=== PATIENT | female | born 1990 | race Caucasian/White ===

== ENCOUNTER → 2017-01-09 | Outpatient (CLI) | payer OTHER ==
[~2017-01-09] MED LIST: CIPR500T4 PO; ONDA1TAB16 PO; PERC5TAB12 PO; PROM25TA5 PO; Z.0.BCPILL PO
[2017-01-09 10:23] LABS: AUTOMATED NEUTROPHIL # 4.7 TH/MM3 (1.8-7.7); BASOPHIL % 0.3 % (0.0-2.0); EOSINOPHIL # 0.1 TH/MM3 (0-0.4); EOSINOPHIL % 1.3 % (0.0-4.0); HEMATOCRIT 37.4 % (35.0-46.0); HEMO FLAGS DIFF FINAL; LYMPH % 18.4 % (9.0-44.0); LYMPHOCYTE # 1.2 TH/MM3 (1.0-4.8); MEAN CELL VOLUME 86.7 FL (80.0-100.0); MEAN CORPUSCULAR HEMOGLOBIN 29.6 PG (27.0-34.0); MEAN CORPUSCULAR HGB CONC 34.1 % (32.0-36.0); MONO % 6.4 % (0.0-8.0); NEUT % 73.6 % (16.0-70.0); PLATELET COUNT 283 TH/MM3 (150-450); RED BLOOD COUNT 4.31 MIL/MM3 (4.00-5.30); RED CELL DISTRIBUTION WIDTH 12.7 % (11.6-17.2); WHITE BLOOD COUNT 6.4 TH/MM3 (4.0-11.0)
[2017-01-09 10:59] LABS: RUBELLA IGG ANTIBODY 115.5 IU/mL (10.0-500.0); RUBELLA STATUS IMMUNE (IMMUNE)
[2017-01-09 14:12] LABS: RAPID PLASMA REAGIN SCREEN NON-REACTIVE (NON-REACTVE)
== END ==
LOC: CLAB 09:46
PROVIDERS: ATTEND Obstetrics & Gynecology
DX: Z34.01 Encounter for supervision of normal first pregnancy, first trimester (principal)
CPT/HCPCS: 36415; 83020; 85025; 86592; 86703; 86762; 86850; 86900; 86901; 87086; 87340

== ENCOUNTER 2017-03-31 14:54 | Emergency (ER) | payer OTHER ==
[~2017-03-31] VITALS: Ht 152.4 cm; Wt 86.2 kg
[2017-03-31] VITALS (12 sets, daily range): BP systolic 116–138; BP diastolic 67–85; PULSE 80–108; TEMP 97.9
--- NOTE | 2017-03-31 15:18 | PD ---
HPI Chief Complaint Elevated BP. Date Seen: Mar 31, 2017 (Jamliah Rich MD R2) Travel History International Travel<30 Days: No Contact w/Intl Traveler<30Days: No (Jamilah Rich MD R2) History of Present Illness HPI Patient is a 26 year old at 23-1/7 weeks gestation who presents today from Dr. Castro's office for elevated BP. Blood pressures in the office were 152/86 and 148/90. She has not had an issue with blood pressure during this but states that she occasionally had elevated blood pressures prior to this . She denies any visual changes, edema, headache, or abdominal pain. She denies any vaginal bleeding or discharge. No gush or leaking of fluid. Positive movement. (Jamilah Rich MD R2) History Past Medical History Medical History: Denies Significant Hx (Jamilah Rich MD R2) Obstetric History Obstetric History (Jamilah Rich MD R2) Past Surgical History Surgical History: No Previous Surgery (Jamilah Rich MD R2) Family History Family History: Negative (Jamilah Rich MD R2) Social History Alcohol Use: No Tobacco Use: No Substance Abuse: No (Jamilah Rich MD R2) Allergies-Medications (Allergen,Severity, Reaction): Coded Allergies: Biaxin (Verified Allergy, Mild, rash, 12/19/15) Penicillin (Verified Allergy, Mild, rash, 12/19/15) Home Meds Discontinued Reported Medications Miscellaneous ( Control Pills) Tab1 Tab PO DAILY 12/17/15 Discontinued Scripts Promethazine 25 mg (Phenergan 25 mg)25 Mg Tab25 Mg PO Q6H PRN (NAUSEA) #20 TAB Prov:Dyan Holman MD 12/19/15 Ondansetron Hcl (Zofran Tab)4 Mg Tab4 Mg PO Q6 PRN (NAUSEA OR VOMITING) #12 TAB Prov:Jesse Quiroga MD 12/17/15 Ciprofloxacin Hcl (Cipro)500 Mg [id number] Mg PO BID #10 TAB Prov:Jesse Quiroga MD 12/17/15 Oxycodone-Acetaminophen 5-325 mg (Percocet 5-325 mg)Oxycodone 5/325 Acetaminophen Tab1 Tab PO Q6H PRN (PAIN) #25 TAB Prov:Jesse Quiroga MD 12/17/15 Review of Systems Except as stated in HPI: all other systems reviewed are Neg General / Constitutional: No: Fever, Chills Eyes: No: Blurred Vision, Visual changes HENT: No: Headaches Cardiovascular: No: Edema Respiratory: No: Short of Breath Gastrointestinal: No: Abdominal Pain Genitourinary: No: Dysuria, Pelvic Pain, Discharge, Vaginal Bleeding Musculoskeletal: No: Edema Psychiatric: No: Substance Abuse (Jamilah Rich MD R2) Physical Exam Narrative GENERAL: Well-nourished, well-developed patient. SKIN: Warm and dry. HEAD: Normocephalic and atraumatic. EYES: No scleral icterus. No injection or drainage. ENT: No nasal drainage noted. Mucous membranes pink. Airway patent. NECK: Supple, trachea midline. No JVD. CARDIOVASCULAR: Regular rate and rhythm without murmurs, gallops, or rubs. RESPIRATORY: Breath sounds equal bilaterally. No accessory muscle use. ABDOMEN/GI: Abdomen soft, non-tender, bowel sounds present, no rebound, no guarding Gravid to 23 weeks size GENITOURINARY: Membranes: intact Uterine Contractions: none FHT's: Category: I Baseline: 150 Reactive: + Variability: moderate Decels: none EXTREMITIES: No cyanosis or edema. BACK: Nontender without obvious deformity. No CVA tenderness. NEUROLOGICAL: Awake and alert. Motor and sensory grossly within normal limits. Normal speech. (Jamilah Rich MD R2) Data Data Vital Signs Reviewed: Yes Orders Cbc No Diff, Includes Plts (03/31/17 15:15) Comprehensive Metabolic Panel (03/31/17 15:15) Uric Acid (03/31/17 15:15) Urinalysis - C+S If Indicated (03/31/17 15:15) Vital Signs (Adult) .ON ADMISSION (03/31/17 15:16) ^ Labor Status (03/31/17 15:16) ^ Hydration (03/31/17 15:16) (Jamilah Rich MD R2) MDM Medical Record Reviewed: Yes Narrative Course / MDM 26 year old at 23-1/7 weeks gestation. 1. IUP- Category I tracing, reassuring. 2. Elevated BP- BP 126/69 here. Will obtain Preeclampsia workup including CBC, CMP, uric acid, and UA. Continue to monitor BP. dw Dr. Hernandez Addendum: BP's stable ranging 116-126/67-79. CBC, CMP, uric acid wnl UA significant for 30 protein Will obtain 24 hour urine protein as an outpatient. Discharge to home, follow-up with Dr. Castro. (Jamilah Rich MD R2) Attending Attestation The exam, history, and the medical decision-making described in the above note were completed with the assistance of the resident provider. I reviewed and agree with the findings presented. I attest that I had a [id number] encounter with the patient on the same day, and personally performed and documented my assessment and findings in the medical record. (Zeus Hernandez MD) Diagnosis Diagnosis: Primary Impression: Elevated blood pressure affecting in second trimester, antepartum Additional Impression: 23 weeks gestation of Disposition: DISCHARGE HOME Condition: Stable Patient Instructions: 24 Hour Urine Collection (GEN), General Instructions Jamilah Rich MD R2 Mar 31, 2017 15:18 Zeus Hernandez MD Mar 31, 2017 17:03
[2017-03-31 16:31] LABS: BLOOD, URINE NEG (NEG); COMMENT (UR) CULTURE INDICATED; CULTURE IF INDICATED CULTURE INDICATED; GLUCOSE,URINE NEG (NEG); KETONE, URINE NEG (NEG); MUCUS URINE FEW /lpf (OCC); NITRITE,URINE NEG (NEG); PH, URINE 6.5 (5.0-8.5); SQUAMOUS EPITHELIAL CELL URINE 14 /hpf (0-5); URINE COLOR YELLOW (YELLW/STRAW)
[2017-03-31 16:34] LABS: MEAN CELL VOLUME 87.3 FL (80.0-100.0); MEAN CORPUSCULAR HEMOGLOBIN 29.4 PG (27.0-34.0); MEAN CORPUSCULAR HGB CONC 33.7 % (32.0-36.0); PLATELET COUNT 236 TH/MM3 (150-450); RED BLOOD COUNT 3.78 MIL/MM3 (4.00-5.30); RED CELL DISTRIBUTION WIDTH 12.9 % (11.6-17.2); REVIEW FLAG FINAL; WHITE BLOOD COUNT 8.8 TH/MM3 (4.0-11.0)
[2017-03-31 16:42] LABS: ALT (GPT) 14 U/L (10-53); ANION GAP 9 MEQ/L (5-15); AST (GOT) 7 U/L (15-37); BICARBONATE 23.8 MEQ/L (21.0-32.0); BLOOD UREA NITROGEN 6 MG/DL (7-18); CHLORIDE 106 MEQ/L (98-107); GLOMERULAR FILTRATION RATE 142 ML/MIN (>89); POTASSIUM 3.9 MEQ/L (3.5-5.1); SODIUM (NA) 139 MEQ/L (136-145)
[2017-03-31 16:45] LABS: ALKALINE PHOSPHATASE 94 U/L (45-117); TOTAL BILIRUBIN ADULT 0.2 MG/DL (0.2-1.0)
== END 2017-03-31 17:19 | disposition home or self-care (01) ==
LOC: HOBED 14:54
DX: R03.0 Elevated blood-pressure reading, without diagnosis of hypertension (principal); O26.92 Pregnancy related conditions, unspecified, second trimester; B96.89 Other specified bacterial agents as the cause of diseases classified elsewhere; Z88.0 Allergy status to penicillin; Z3A.23 23 weeks gestation of pregnancy
CPT/HCPCS: 80053; 81001; 84550; 85027; 87086; 99283

== ENCOUNTER → 2017-04-02 | Outpatient (CLI) | payer OTHER ==
[2017-04-02 16:35] LABS: URINE TOTAL PROTEIN TIMED 7.8 MG/DL
== END ==
LOC: PLAB 12:15
PROVIDERS: ATTEND Family Medicine
DX: O13.2 Gestational [pregnancy-induced] hypertension without significant proteinuria, second trimester (principal)
CPT/HCPCS: 84157

== ENCOUNTER → 2017-05-04 | Outpatient (CLI) | payer OTHER ==
[2017-05-04 12:41] LABS: HEMATOCRIT 33.1 % (35.0-46.0); REVIEW FLAG FINAL
== END ==
LOC: CLAB 10:52
PROVIDERS: ATTEND Obstetrics & Gynecology
DX: Z34.83 Encounter for supervision of other normal pregnancy, third trimester (principal)
CPT/HCPCS: 36415; 82951; 85014; 85018

== ENCOUNTER 2017-06-09 15:24 | Emergency (ER) | payer OTHER ==
[~2017-06-09] VITALS: Ht 152.4 cm; Wt 90.0 kg
--- NOTE | 2017-06-09 16:33 | PD ---
HPI Chief Complaint Elevated BP in the office Travel History International Travel<30 Days: No Contact w/Intl Traveler<30Days: No Known Affected Area: No History of Present Illness HPI 26y/o , IUP at 33.1 PNC complicated by 1. Obesity 2. Elevated BP in office on prior occasions Patient presents from the office for evaluation of elevated BP in the office. She reports her BP in the office was 186/102. She denies any LINDSEY, visual changes , RUQ or epigastric pain. She reports normal FM. She denies any ctx, LOF, or VB. She has no other concerns today. Weeks Gestation: 33 Para: 0 : 1 History Past Medical History Narrative Medical Obesity Obstetric History Obstetric History Past Surgical History Surgical History: No Previous Surgery Family History Narrative Family History HTN Elevated cholesterol DM CA Social History Alcohol Use: No Tobacco Use: No Substance Abuse: No Allergies-Medications (Allergen,Severity, Reaction): Coded Allergies: clarithromycin (Verified Allergy, Mild, rash, 06/09/17) penicillin G (Verified Allergy, Mild, rash, 06/09/17) Review of Systems Except as stated in HPI: all other systems reviewed are Neg Physical Exam Narrative GENERAL: Well-nourished, well-developed patient. SKIN: Warm and dry. HEAD: Normocephalic and atraumatic. EYES: No scleral icterus. No injection or drainage. ENT: No nasal drainage noted. Mucous membranes pink. Airway patent. NECK: Supple, trachea midline. No JVD. CARDIOVASCULAR: Regular rate and rhythm without murmurs, gallops, or rubs. RESPIRATORY: Breath sounds equal bilaterally. No accessory muscle use. BREASTS: deferred ABDOMEN/GI: Abdomen soft, non-tender, bowel sounds present, no rebound, no guarding Gravid GENITOURINARY: deferred FHT's: Reactive NST, 120s EXTREMITIES: No cyanosis. 1+ edema. BACK: Nontender without obvious deformity. No CVA tenderness. NEUROLOGICAL: Awake and alert. Motor and sensory grossly within normal limits. Five out of 5 muscle strength in all muscle groups. Normal speech. No clonus MS: grossly normal ROM, gait, muscle strength Data Data Orders Orders Vital Signs (Adult) .ON ADMISSION (06/09/17 16:09) ^ Labor Status (06/09/17 16:09) Urinalysis - C+S If Indicated (06/09/17 16:09) Diet Liquid (06/09/17 Dinner) Cbc No Diff, Includes Plts (06/09/17 16:09) Comprehensive Metabolic Panel (06/09/17 16:09) Uric Acid (06/09/17 16:09) Protein Creat Ratio, Random Ur (06/09/17 16:09) MDM Plan A/P: 26y/o 1. IUP at 33.1 2. Elevated BP: no evidence of preeclampsia, normal BP on evaluation at [facility] and no signs/symptoms of preeclampsia. Normal labs, normal PC ratio, will f/u with 24h urine for TP and creatinine clearance, modified bedrest at home. 3. wellbeing: reassuring testing with reactive NST, FHR reassuring and appropriate for gestational age, FKC daily. 4. obesity 5. Hypokalemia: will Rx KCl 40mew now and repeat dose po in am, rx given. 6. F/U with primary OB in 2-3d or sooner if needed Case discussed with Dr. Castro who agreed with evaluation and plan of care. Diagnosis Diagnosis: Primary Impression: 33 weeks gestation of Additional Impression: Gestational [-induced] hypertension without significant proteinuria, third trimester Disposition: 01 DISCHARGE HOME Patient Instructions: Movement (ED), Preeclampsia (ED) Additional Instructions: F/U with primary Ob in 3d or sooner if needed, strict preeclampsia precautions, FKC daily. 24h urine collection. modified bedrest. Cassie Ambrocio MD Jun 09, 2017 16:33
[2017-06-09 16:39] LABS: HEMATOCRIT 35.6 % (35.0-46.0); MEAN CELL VOLUME 88.1 FL (80.0-100.0); MEAN CORPUSCULAR HEMOGLOBIN 28.9 PG (27.0-34.0); MEAN CORPUSCULAR HGB CONC 32.8 % (32.0-36.0); PLATELET COUNT 257 TH/MM3 (150-450); RED BLOOD COUNT 4.03 MIL/MM3 (4.00-5.30); REVIEW FLAG FINAL; WHITE BLOOD COUNT 11.6 TH/MM3 (4.0-11.0)
[2017-06-09 16:47] LABS: BACTERIA, URINE RARE /hpf; BLOOD, URINE NEG (NEG); COMMENT (UR) CULT NOT INDICATED; CULTURE IF INDICATED CULT NOT INDICATED; GLUCOSE,URINE NEG (NEG); KETONE, URINE TRACE mg/dL (NEG); MUCUS URINE FEW /lpf (OCC); NITRITE,URINE NEG (NEG); SQUAMOUS EPITHELIAL CELL URINE 17 /hpf (0-5); URINE COLOR YELLOW (YELLW/STRAW)
[2017-06-09 17:03] LABS: ANION GAP 5 MEQ/L (5-15); AST (GOT) 5 U/L (15-37); BICARBONATE 26.6 MEQ/L (21.0-32.0); BLOOD UREA NITROGEN 4 MG/DL (7-18); CHLORIDE 106 MEQ/L (98-107); GLOMERULAR FILTRATION RATE 142 ML/MIN (>89); POTASSIUM 3.3 MEQ/L (3.5-5.1); SODIUM (NA) 138 MEQ/L (136-145)
[2017-06-09 17:08] LABS: ALKALINE PHOSPHATASE 169 U/L (45-117); ALT (GPT) 16 U/L (10-53); TOTAL BILIRUBIN ADULT 0.2 MG/DL (0.2-1.0); URIC ACID 4.1 MG/DL (2.6-6.0)
--- NOTE | 2017-06-09 18:04 | PD ---
History of Present Illness History of Present Illness NST procedure note Indications: IUP at 33w, elevated BP, obesity Baseline: 130s, moderate LTV, good accels, no decels No ctx Final Dx: IUP at 33w, reassuring testing, no evidence of preeclampsia F/U as clinically indicated Cassie Ambrocio MD Jun 09, 2017 18:04
[2017-06-09] MEDS ORDERED: POTASSIUM CHLORIDE 20 MEQ CONTROLLED RELEASE TAB PO ONE (18:15)
== END 2017-06-09 19:03 | disposition home or self-care (01) ==
LOC: HOBED 15:24
DX: O13.3 Gestational [pregnancy-induced] hypertension without significant proteinuria, third trimester (principal); O99.213 Obesity complicating pregnancy, third trimester; E87.6 Hypokalemia; Z3A.33 33 weeks gestation of pregnancy; Z88.0 Allergy status to penicillin; Z88.8 Allergy status to other drugs, medicaments and biological substances
CPT/HCPCS: 36415; 59025; 80053; 81001; 82570; 84156; 84550; 85027

== ENCOUNTER → 2017-06-11 | Outpatient (CLI) | payer OTHER ==
[~2017-06-11] MED LIST changes: -CIPR500T4 PO; +IBUP-232 PO; -ONDA1TAB16 PO; +OXYC1TAB63 PO; -PERC5TAB12 PO; -PROM25TA5 PO; -Z.0.BCPILL PO
[2017-06-11 13:24] LABS: POTASSIUM 3.8 MEQ/L (3.5-5.1)
[2017-06-11 13:45] LABS: URINE TOTAL PROTEIN TIMED 10.4 MG/DL
[2017-06-11 13:55] LABS: CREAT 24 TIMED 45.9 MG/DL
== END ==
LOC: PLAB 10:56
DX: O13.9 Gestational [pregnancy-induced] hypertension without significant proteinuria, unspecified trimester (principal); O14.90 Unspecified pre-eclampsia, unspecified trimester
CPT/HCPCS: 80048; 82575; 84157

== ENCOUNTER 2017-07-23 09:23 | Inpatient (IN) | payer OTHER ==
[2017-07-24] MEDS ORDERED: PHENYLEPH/NS 1000 MCG/10 ML SYR IV ONE (12:00)
[2017-07-24] MEDS ORDERED: DEXAMETHASONE SOD PHOS 4 MG/ML VIAL IV ONE (12:00)
[2017-07-24] MEDS ORDERED: ePHEDrine/NS 25 MG/5 ML SYR IV ONE (12:00)
[2017-07-24] MEDS ORDERED: OXYTOCIN 10 UNIT/ML AMP IV ONE (12:00)
[2017-07-24] MEDS ORDERED: MORPHINE SULFATE PF 5 MG/10 ML VIAL ONE (12:00)
[2017-07-24] MEDS ORDERED: ONDANSETRON HCL 4 MG/2 ML VIAL IV PUSH ONE (12:00)
[2017-07-24] MEDS ORDERED: LACTATED RINGER'S 1000 ML INJ 2,000 ML IV ONE (12:00)
[2017-07-24] MEDS ORDERED: LIDOCAINE HCL 1% PF 5 ML AMPULE ONE (13:46)
[2017-07-24 14:12] LABS: AUTOMATED NEUTROPHIL # 8.3 TH/MM3 (1.8-7.7); BASOPHIL % 0.3 % (0.0-2.0); EOSINOPHIL # 0.1 TH/MM3 (0-0.4); EOSINOPHIL % 0.5 % (0.0-4.0); HEMATOCRIT 35.3 % (35.0-46.0); HEMO FLAGS DIFF FINAL; LYMPH % 15.9 % (9.0-44.0); LYMPHOCYTE # 1.7 TH/MM3 (1.0-4.8); MEAN CELL VOLUME 86.3 FL (80.0-100.0); MEAN CORPUSCULAR HEMOGLOBIN 28.6 PG (27.0-34.0); MEAN CORPUSCULAR HGB CONC 33.2 % (32.0-36.0); MONO % 5.1 % (0.0-8.0); NEUT % 78.2 % (16.0-70.0); PLATELET COUNT 216 TH/MM3 (150-450); RED BLOOD COUNT 4.09 MIL/MM3 (4.00-5.30); RED CELL DISTRIBUTION WIDTH 13.7 % (11.6-17.2); WHITE BLOOD COUNT 10.7 TH/MM3 (4.0-11.0)
[2017-07-24 14:29] LABS: BACTERIA, URINE FEW /hpf; BLOOD, URINE NEG (NEG); COMMENT (UR) CULTURE INDICATED; CULTURE IF INDICATED CULTURE INDICATED; GLUCOSE,URINE NEG (NEG); KETONE, URINE 40 mg/dL (NEG); MUCUS URINE FEW /lpf (OCC); NITRITE,URINE NEG (NEG); SQUAMOUS EPITHELIAL CELL URINE 10 /hpf (0-5); URINE COLOR YELLOW (YELLW/STRAW)
[2017-07-24] MEDS ORDERED: CITRIC ACID-SODIUM CITRATE LIQ 30 ML UDC PO SCH (15:45)
[2017-07-24] MEDS ORDERED: ceFAZolin 2 GM PREMIX 50 ML IV SCH (15:45)
[2017-07-24] MEDS ORDERED: LACTATED RINGER'S 1000 ML IV ONE (15:45)
[2017-07-24] MEDS ORDERED: LACTATED RINGER'S 1000 ML IV SCH (16:15)
[2017-07-24 20:04] VITALS: BP 140/94; PULSE 88
[2017-07-24 20:15] VITALS: RESP 18; TEMP 98.7
[2017-07-24 21:56] VITALS: BP 139/90; PULSE 80
[2017-07-24] MEDS ORDERED: oxyCODONE/ACETAMINOPHEN 5 MG/325 MG TAB PO PRN (23:45)
[2017-07-24] MEDS ORDERED: ZOLPIDEM TARTRATE 5 MG TAB PO PRN (23:45)
[2017-07-24] MEDS ORDERED: ACETAMINOPHEN 325 MG TAB PO PRN (23:45)
[2017-07-24] MEDS ORDERED: SIMETHICONE 80 MG CHEWABLE TAB PO PRN (23:45)
[2017-07-24] MEDS ORDERED: OXYTOCIN 30 UNITS-500ML PREMIX 500 ML IV ONE ×2 (23:45)
[2017-07-24] MEDS ORDERED: SODIUM CHLORIDE 0.9% FLUSH 10 ML FLUSH IV FLUSH PRN (23:45)
[2017-07-24] MEDS ORDERED: ONDANSETRON HCL 4 MG/2 ML VIAL IV PUSH PRN (23:45)
[2017-07-24 23:56] VITALS: BP 126/72; PULSE 85; RESP 20; TEMP 98.1; O2SAT 98
[2017-07-25 00:02] VITALS: BP 127/68; PULSE 70; RESP 18; O2SAT 97
[2017-07-25 00:16] VITALS: BP 135/74; PULSE 97; RESP 20; O2SAT 99
[2017-07-25 00:36] VITALS: BP 133/79; PULSE 72; RESP 18; O2SAT 98
[2017-07-25 01:15] VITALS: BP 127/74; PULSE 73; RESP 20; TEMP 98.1; O2SAT 99
[2017-07-25 04:00] VITALS: BP 133/66; PULSE 86; RESP 18; TEMP 98
[2017-07-25] MEDS ORDERED: LACTATED RINGER'S 1000 ML INJ 1,000 ML IV SCH (04:41)
[2017-07-25 08:48] LABS: AUTOMATED NEUTROPHIL # 10.7 TH/MM3 (1.8-7.7); BASOPHIL % 0.1 % (0.0-2.0); HEMO FLAGS DIFF FINAL; LYMPH % 10.5 % (9.0-44.0); LYMPHOCYTE # 1.3 TH/MM3 (1.0-4.8); MEAN CELL VOLUME 86.1 FL (80.0-100.0); MEAN CORPUSCULAR HEMOGLOBIN 28.6 PG (27.0-34.0); MEAN CORPUSCULAR HGB CONC 33.2 % (32.0-36.0); MONO % 5.1 % (0.0-8.0); NEUT % 84.3 % (16.0-70.0); PLATELET COUNT 192 TH/MM3 (150-450); RED BLOOD COUNT 3.48 MIL/MM3 (4.00-5.30); RED CELL DISTRIBUTION WIDTH 13.7 % (11.6-17.2); WHITE BLOOD COUNT 12.7 TH/MM3 (4.0-11.0)
[2017-07-25] MEDS ORDERED: SODIUM CHLORIDE 0.9% FLUSH 10 ML FLUSH IV FLUSH SCH (09:00)
[2017-07-25] MEDS ORDERED: OXYTOCIN 30 UNITS-500ML PREMIX 500 ML IV PRN (09:45)
[2017-07-25] MEDS: IBUPROFEN 600 MG TAB PO PRN ×2 (10:40→18:39)
[2017-07-25] MEDS: oxyCODONE/ACETAMINOPHEN 5 MG/325 MG TAB PO PRN ×2 (12:06→18:39)
--- NOTE | 2017-07-25 14:54 | MP ---
cc: Pawel CASTRO MD Corrected Copy: 07/28/17 DATE OF SURGERY: 07/25/2017. PREOPERATIVE DIAGNOSIS: 1. Intrauterine at 39+ weeks. 2. Breech presentation. POSTOPERATIVE DIAGNOSIS: 1. Intrauterine at 39+ weeks. 2. Breech presentation. 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 OPERATIVE PROCEDURE PERFORMED: Primary low transverse section. SURGEON: Pawel Castro MD. ANESTHESIA: Spinal. FINDINGS: The uterus was a unicornuate with an absent left tube, it was small. The right ovary and tube were normal. On the left side, there was an infundibulopelvic ligament with a possible small ovary, but it was retroperitoneal. The baby was a girl, 6 pounds, 5 ounces in good health. COMPLICATIONS: None. COUNTS: Correct. ESTIMATED BLOOD LOSS: 500 cc. FLUIDS: Crystalloids. DISPOSITION: The patient tolerated the procedure well and went to the recovery room in good condition. DESCRIPTION OF THE PROCEDURE IN DETAIL: Under an adequate level of anesthesia, she was prepped and draped for abdominal surgery. A Pfannenstiel incision was made and carried down to the fascia. The fascia was taken off the rectus muscle by blunt and sharp dissection. The rectus muscles were spread bluntly and the peritoneum was entered under direct vision without difficulty. The incision was extended with care to avoid the urinary bladder. A bladder blade was placed and a bladder flap created in the usual fashion. The uterine incision was made in a transverse manner along the lower uterine segment which was not well-developed. It was taken down in the midline until the intrauterine cavity was entered. A large amount of clear fluid was noted. The breech was grasped and delivered without difficulty. The legs were delivered and the thorax was delivered. The arms were reduced bilaterally without difficulty. With gentle fundal pressure the vertex was delivered without difficulty and the hypopharynx and nasopharynx were suctioned. The cord doubly clamped and cut and the handed to the resuscitation team present. The placenta was delivered manually. The uterus was curettaged twice with a wet lap and irrigated with a large amount of fluid. The uterine incision was then repaired with 2-0 Vicryl in a running locking fashion, with the second layer imbricating the first. Hemostasis was excellent. The cul-de-sac and gutters were cleaned of blood and debris. The uterus was delivered back into the abdomen. The rectus muscles were reapproximated with 0 Vicryl in interrupted fashion. The fascia was repaired from lateral to midline with 0 Vicryl and the subcu was repaired with 3-0 Vicryl. The skin was repaired with a 4-0 Vicryl in a subcuticular manner. The wound was sterilely dressed. She tolerated the procedure well and went to the recovery room in satisfactory condition. R. MD PREM Esparza/JCSuzette /11:43 PM /8:41 AM
[2017-07-25] MEDS ORDERED: DIPHTH/TETANUS/ACEL PERTUSSIS (BOOSTER) 0.5 ML VIAL/PFS IM ONE (16:00)
[2017-07-25] MEDS ORDERED: MEASLES, MUMPS, RUBELLA VACCINE 0.5 ML VIAL SQ ONE (16:00)
[2017-07-25] MEDS: DOCUSATE SODIUM 50 MG/SENNA 8.6 MG TAB PO PRN (18:40)
[2017-07-25 20:40] VITALS: BP 142/89; PULSE 95; RESP 16; TEMP 98
[2017-07-26] MEDS: oxyCODONE/ACETAMINOPHEN 5 MG/325 MG TAB PO PRN ×2 (02:08→09:11)
[2017-07-26] MEDS: IBUPROFEN 600 MG TAB PO PRN ×3 (02:08→15:53)
[2017-07-26] MEDS: DOCUSATE SODIUM 50 MG/SENNA 8.6 MG TAB PO PRN (09:11)
[2017-07-26] MEDS ORDERED: IBUP-232 PO (15:09)
[2017-07-26] MEDS ORDERED: OXYC1TAB63 PO (15:09)
--- NOTE | 2017-07-26 15:12 | HHI.DCPOC ---
Discharge Care Plan Diagnosis: (1) Breech extraction, delivered (2) delivery delivered Report Symptoms to Your Doctor -Temperature above 100.5 degrees -Redness, of incision or excessive or foul smelling drainage -Unusual pain or calf pain -Increased vaginal bleeding -Painful or difficulty urinating -Feelings of extreme sadness or anxiety after 2 weeks Goals to Promote Your Health * To prevent worsening of your condition and complications * To maintain your health at the optimal level Directions to Meet Your Goals Take your medications as prescribed Follow your dietary instruction Follow activity as directed Ensure plenty of rest for recovery Drink fluids for hydration Keep your appointments as scheduled Take your immunizations and boosters as scheduled If your symptoms worsen call your PCP, if no PCP go to Urgent Care Center or Emergency Room Smoking is Dangerous to Your Health. Avoid second hand smoke Call the 24-hour crisis hotline for domestic abuse at Pawel Castro MD Jul 26, 2017 15:12
--- NOTE | 2017-07-26 15:26 | HHI.OB ---
Subjective Post Operative Day: 2 Remarks Doing well Baby is doing well Bleeding is normal Pain is controlled ready to go home Objective Vitals/I&O Vital Signs Date Time Temp Pulse Resp B/P (MAP) Pulse Ox O2 Delivery O2 Flow Rate FiO2 07/25/17 20:40 95 142/89 (106) 07/25/17 20:40 98.0 16 Result Diagram: 07/25/17 0810 Objective Remarks GENERAL: Well-nourished, well-developed patient. CARDIOVASCULAR: Regular rate and rhythm without murmurs, gallops, or rubs. RESPIRATORY: Breath sounds equal bilaterally. No accessory muscle use. ABDOMEN/GI: Abdomen soft, non-tender, bowel sounds present. Incision: Clean, dry and intact. Fundus: Firm, non-tender at umbilicus. GENITOURINARY: Light to moderate bleeding. EXTREMITIES: No cyanosis or edema, non-tender, without signs of DVT. Medications and IVs Current Medications Medications (Trade) Dose Ordered Sig/Norma Route Start Time Stop Time Status Last Admin (NS Flush) 2 ml BID IV FLUSH 07/25/17 09:00 (NS Flush) 2 ml UNSCH PRN IV FLUSH 07/24/17 23:45 (Mylicon Chew) 80 mg QID PRN PO 07/24/17 23:45 (Tylenol) 650 mg Q6H PRN PO 07/24/17 23:45 (Motrin) 600 mg Q6H PRN PO 07/24/17 23:45 07/26/17 09:11 (Percocet 5-325 Mg) 1 tab Q4H PRN PO 07/24/17 23:45 (Percocet 5-325 Mg) 2 tab Q4H PRN PO 07/24/17 23:45 07/26/17 09:11 (Yanci-Colace) 2 tab Q12H PRN PO 07/24/17 23:45 07/26/17 09:11 (Ambien) 5 mg HS PRN PO 07/24/17 23:45 (Zofran Inj) 4 mg Q6H PRN IV PUSH 07/24/17 23:45 Assessment/Plan Assessment and Plan POD #[address] scan and the kidneys are normal. (has unicornuate uterus) Home today Pawel Castro MD Jul 26, 2017 15:26
== END 2017-07-26 17:00 | disposition home or self-care (01) | DRG 766 ==
LOC: UNDOADMIN 09:23 → H2EB 09:23 → H1EA 07-25 01:04
PROVIDERS: ADMIT Obstetrics & Gynecology; ATTEND Obstetrics & Gynecology
PROC: 10D00Z1 Extraction of Products of Conception, Low, Open Approach (ICD-10-PCS; principal; 2017-07-24)
DX: O32.1XX0 Maternal care for breech presentation, not applicable or unspecified (principal); O34.03 Maternal care for unspecified congenital malformation of uterus, third trimester; Q51.4 Unicornate uterus; Q50.6 Other congenital malformations of fallopian tube and broad ligament; Z3A.39 39 weeks gestation of pregnancy; Z37.0 Single live birth
CPT/HCPCS: 59025; 81001; 85025; 86850; 86900; 86901; 87086; 90715; J0690; J1100; J2274; J2370; J2405; J2590; J7120